=== PATIENT | female | born 1930 | race African-American/Black ===

== ENCOUNTER 2019-03-27 15:42 | Emergency (ER) | payer OTHER ==
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
[2019-03-27] MEDS ORDERED: TRAMADOL HCL 50 MG TAB ONE (18:42)
[2019-03-27 22:20] VITALS: TEMP 97.9
[2019-03-27 22:21] VITALS: O2SAT 99
[2019-03-27 22:22] VITALS: BP 151/65
== END 2019-03-27 18:50 | disposition home or self-care (01) ==
LOC: ER 15:42
DX: S16.1XXA Strain of muscle, fascia and tendon at neck level, initial encounter (principal); M25.562 Pain in left knee; V49.50XA Passenger injured in collision with unspecified motor vehicles in traffic accident, initial encounter; I10 Essential (primary) hypertension; Z88.0 Allergy status to penicillin
CPT/HCPCS: 71045; 72125; 99285